=== PATIENT | male | born 1990 ===

== ENCOUNTER 2024-03-11 13:36 | Emergency (ER) | payer BC, OTHER ==
[~2024-03-11] VITALS: Ht 167.6 cm; Wt 74.8 kg
[2024-03-11] MEDS ORDERED: Ondansetron HCl 2 MG / ML 2ML Vial IV PRN (14:00)
[2024-03-11 14:42] LABS: Albumin, Blood 3.8 g/dL (3.4-5.0); Bilirubin, Total 1.3 mg/dL (0.1-1.0); Bun/Creatinine Ratio 8.2 (12.0-20.0); Creatinine, Blood 0.85 mg/dL (0.60-1.20); Potassium, Blood 4.6 mmol/L (3.5-5.5); Total Protein, Blood 7.8 g/dL (6.4-8.2)
[2024-03-11 15:13] LABS: BASOPHILS ABSOLUTE AUTO 0.06 K/mm3 (0.00-0.23); BASOPHILS PERCENT AUTO 0 % (0-2); EOSINOPHILS ABSOLUTE AUTO 0.05 K/mm3 (0.00-0.68); EOSINOPHILS PERCENT AUTO 0 % (0-6); Hematocrit 43.1 % (37.0-53.0); Hemoglobin 14.9 g/dL (13.5-17.5); IMMATURE GRAN ABSOLUTE AUTO 0.08 K/mm3 (0.00-0.10); IMMATURE GRAN PERCENT AUTO 0 % (0-1); LYMPHOCYTES ABSOLUTE AUTO 1.82 K/mm3 (0.84-5.20); LYMPHOCYTES PERCENT AUTO 9 % (21-46); MONOCYTES ABSOLUTE AUTO 1.65 K/mm3 (0.16-1.47); MONOCYTES PERCENT AUTO 8 % (4-13); Mean Corpuscular HGB 28.4 pg (26.0-34.0); Mean Corpuscular HGB Conc 34.6 g/dL (31.5-36.5); Mean Corpuscular Volume 82 fL (80-100); Mean Platelet Volume 10.2 fL (9.1-12.4); NEUTROPHILS ABSOLUTE AUTO 17.68 K/mm3 (1.96-9.15); NEUTROPHILS PERCENT AUTO 83 % (41-73); Platelet Count 423 K/mm3 (150-400); RDW Coefficient Variation 12.1 % (11.7-14.2); RDW Standard Deviation 36.3 fL (35.1-46.3); Red Blood Cell Count 5.25 M/mm3 (4.30-5.90); White Blood Cell Count 21.34 K/mm3 (4.00-11.30)
[2024-03-11] MEDS ORDERED: Prednisone20 MG PO (16:18)
[2024-03-11] MEDS ORDERED: ONDA4ODT MM (16:18)
== END 2024-03-11 16:28 | disposition home or self-care (01) ==
LOC: ER 13:36
PROVIDERS: Emergency Medicine
DX: K50.00 Crohn's disease of small intestine without complications (principal)
CPT/HCPCS: 74177; 80053; 83690; 85025; 96374-59; 99284-25; J2405; Q9967

== ENCOUNTER 2024-10-17 11:46 | Emergency (ER) | payer BC, OTHER ==
[~2024-10-17] VITALS: Ht 162.6 cm; Wt 63.5 kg
[~2024-10-17 11:46] MED LIST: ONDA4ODT MM; Prednisone20 MG PO
[2024-10-17 13:01] LABS: BASOPHILS ABSOLUTE AUTO 0.05 K/mm3 (0.00-0.23); BASOPHILS PERCENT AUTO 0 % (0-2); EOSINOPHILS ABSOLUTE AUTO 0.02 K/mm3 (0.00-0.68); EOSINOPHILS PERCENT AUTO 0 % (0-6); Hematocrit 42.5 % (37.0-53.0); Hemoglobin 14.5 g/dL (13.5-17.5); IMMATURE GRAN ABSOLUTE AUTO 0.07 K/mm3 (0.00-0.10); IMMATURE GRAN PERCENT AUTO 0 % (0-1); LYMPHOCYTES PERCENT AUTO 9 % (21-46); MONOCYTES ABSOLUTE AUTO 1.77 K/mm3 (0.16-1.47); MONOCYTES PERCENT AUTO 10 % (4-13); Mean Corpuscular HGB 28.5 pg (26.0-34.0); Mean Corpuscular HGB Conc 34.1 g/dL (31.5-36.5); Mean Corpuscular Volume 84 fL (80-100); Mean Platelet Volume 9.9 fL (9.1-12.4); NEUTROPHILS ABSOLUTE AUTO 14.64 K/mm3 (1.96-9.15); NEUTROPHILS PERCENT AUTO 81 % (41-73); Platelet Count 462 K/mm3 (150-400); RDW Coefficient Variation 11.9 % (11.7-14.2); RDW Standard Deviation 36.1 fL (35.1-46.3); Red Blood Cell Count 5.08 M/mm3 (4.30-5.90); White Blood Cell Count 18.15 K/mm3 (4.00-11.30)
[2024-10-17 13:24] LABS: Albumin, Blood 3.4 g/dL (3.4-5.0); Albumin/Globulin Ratio 0.8 (0.8-1.8); Bilirubin, Total 1.1 mg/dL (0.1-1.0); Bun/Creatinine Ratio 11.9 (12.0-20.0); Calcium, Blood 9.3 mg/dL (8.5-10.1); Creatinine, Blood 0.93 mg/dL (0.60-1.20); Globulin, Blood 4.3 g/dL (2.2-4.0); Magnesium, Blood 2.3 mg/dL (1.6-2.4); Phosphorus, Blood 3.2 mg/dL (2.5-4.9); Potassium, Blood 3.7 mmol/L (3.5-5.5); Total Protein, Blood 7.7 g/dL (6.4-8.2)
[2024-10-17] MEDS ORDERED: PredniSONE 20 MG Tab PO ONE (15:25)
[2024-10-17] MEDS ORDERED: ONDA4ODT MM (15:29)
[2024-10-17] MEDS ORDERED: Prednisone20 MG PO (15:29)
== END 2024-10-17 15:55 | disposition home or self-care (01) ==
LOC: ER 11:46
PROVIDERS: Student in an Organized Health Care Education/Training Program
DX: K50.10 Crohn's disease of large intestine without complications (principal); R07.9 Chest pain, unspecified; Z79.52 Long term (current) use of systemic steroids
CPT/HCPCS: 74177; 80053; 83690; 83735; 84100; 85025; 99284-25; J7512; Q9967

== ENCOUNTER 2024-12-30 09:14 | Inpatient (IN) | payer BC, OTHER ==
[~2024-12-30] VITALS: Ht 167.6 cm; Wt 77.0 kg
[2024-12-30] MEDS ORDERED: Ondansetron HCl 2 MG / ML 2ML Vial IV ONE (10:00)
[2024-12-30] MEDS ORDERED: NS 1,000 ML IV SCH (10:00)
[2024-12-30] MEDS ORDERED: HYDROmorphone HCl/Pf 1MG SYR IV ONE (10:00)
[2024-12-30 10:21] LABS: BASOPHILS ABSOLUTE AUTO 0.08 K/mm3 (0.00-0.23); BASOPHILS PERCENT AUTO 0 % (0-2); EOSINOPHILS ABSOLUTE AUTO 0.01 K/mm3 (0.00-0.68); EOSINOPHILS PERCENT AUTO 0 % (0-6); Hematocrit 42.6 % (37.0-53.0); Hemoglobin 14.1 g/dL (13.5-17.5); IMMATURE GRAN ABSOLUTE AUTO 0.07 K/mm3 (0.00-0.10); IMMATURE GRAN PERCENT AUTO 0 % (0-1); LYMPHOCYTES ABSOLUTE AUTO 1.54 K/mm3 (0.84-5.20); LYMPHOCYTES PERCENT AUTO 8 % (21-46); MONOCYTES ABSOLUTE AUTO 1.46 K/mm3 (0.16-1.47); MONOCYTES PERCENT AUTO 8 % (4-13); Mean Corpuscular HGB Conc 33.1 g/dL (31.5-36.5); Mean Corpuscular Volume 79 fL (80-100); Mean Platelet Volume 9.8 fL (9.1-12.4); NEUTROPHILS ABSOLUTE AUTO 15.96 K/mm3 (1.96-9.15); NEUTROPHILS PERCENT AUTO 83 % (41-73); Platelet Count 542 K/mm3 (150-400); RDW Coefficient Variation 15.8 % (11.7-14.2); RDW Standard Deviation 44.7 fL (35.1-46.3); Red Blood Cell Count 5.42 M/mm3 (4.30-5.90); White Blood Cell Count 19.12 K/mm3 (4.00-11.30)
[2024-12-30 10:53] LABS: Albumin, Blood 3.6 g/dL (3.4-5.0); Albumin/Globulin Ratio 0.7 (0.8-1.8); Bilirubin, Total 0.7 mg/dL (0.1-1.0); Bun/Creatinine Ratio 7.7 (12.0-20.0); Creatinine, Blood 0.91 mg/dL (0.60-1.20); Globulin, Blood 4.9 g/dL (2.2-4.0); Potassium, Blood 3.8 mmol/L (3.5-5.5); Total Protein, Blood 8.5 g/dL (6.4-8.2)
[2024-12-30] MEDS ORDERED: Piperacillin/Tazobactam Sod 3.375 GM in NS 100 ML IV ONE (11:15)
[2024-12-30] MEDS ORDERED: Ondansetron HCl 2 MG / ML 2ML Vial IV PRN ×2 (13:30→16:10)
[2024-12-30] MEDS ORDERED: D5W-1/2NS KCl 20mEq 1,000 ML IV SCH (13:30)
[2024-12-30] MEDS ORDERED: HYDROmorphone HCl/Pf 1MG SYR IV PRN ×2 (13:30→16:10)
[2024-12-30] MEDS ORDERED: Lactated Ringer's 1,000 ML IV SCH (16:02)
[2024-12-30] MEDS ORDERED: Acetaminophen 325 MG TABLET PO PRN (16:10)
[2024-12-30] MEDS ORDERED: Piperacillin/Tazobactam Sod 3.375 GM in NS 100 ML IV SCH (18:00)
--- NOTE | 2024-12-30 18:23 | NUR ---
PT ARRIVED TO ROOM AT 1721 AOX4 AND COOPERATIVE OF CARE. PT IS INDEPENDENT AND HAS CALL LIGHT WITHIN REACH. PT DENIED NAUSEA AND WAS TREATED FOR ABD PAIN PER EMAR. NO DISTRESS NOTED PT ORIENTED TO ROOM. WILL CONTINUE TO MONITOR.
[2024-12-30] MEDS ORDERED: NS 250 ML IV PRN (19:25)
[2024-12-30 20:02] VITALS: BP 160/113
[2024-12-30 20:06] VITALS: BP 163/112
[2024-12-30] MEDS ORDERED: Lactobacil 2-S.Thermo-Bifido 1 1 Cap PO SCH (21:00)
--- NOTE | 2024-12-31 03:52 | NUR ---
SHIFT SUMMARY ADMITTED FOR PARTIAL BOWEL OBSTRUCTION. FULL CODE. ANTIB RX ARE SCHEDULED. IV FLUIDS INFUSING ORDERED. SMALL ABSCESS FOUND IN MESSENTERY. PAIN MEDICATION GIVEN THIS SHIFT. CLEAR LIQUID DIET. ON RA, A&O X4. INDEPENDENT IN ROOM. HE DENIES DIARRHEA. SURGICAL CONSULT IS DR. MIDDLETON.
[2024-12-31 04:01] VITALS: BP 158/108
[2024-12-31 04:50] LABS: BASOPHILS ABSOLUTE AUTO 0.05 K/mm3 (0.00-0.23); BASOPHILS PERCENT AUTO 0 % (0-2); EOSINOPHILS ABSOLUTE AUTO 0.06 K/mm3 (0.00-0.68); EOSINOPHILS PERCENT AUTO 1 % (0-6); Hemoglobin 11.5 g/dL (13.5-17.5); IMMATURE GRAN ABSOLUTE AUTO 0.04 K/mm3 (0.00-0.10); IMMATURE GRAN PERCENT AUTO 0 % (0-1); LYMPHOCYTES ABSOLUTE AUTO 1.73 K/mm3 (0.84-5.20); LYMPHOCYTES PERCENT AUTO 14 % (21-46); MONOCYTES ABSOLUTE AUTO 1.23 K/mm3 (0.16-1.47); MONOCYTES PERCENT AUTO 10 % (4-13); Mean Corpuscular HGB 25.1 pg (26.0-34.0); Mean Corpuscular HGB Conc 31.9 g/dL (31.5-36.5); Mean Corpuscular Volume 78 fL (80-100); Mean Platelet Volume 9.4 fL (9.1-12.4); NEUTROPHILS ABSOLUTE AUTO 9.05 K/mm3 (1.96-9.15); NEUTROPHILS PERCENT AUTO 75 % (41-73); Platelet Count 387 K/mm3 (150-400); RDW Coefficient Variation 15.9 % (11.7-14.2); RDW Standard Deviation 44.9 fL (35.1-46.3); Red Blood Cell Count 4.59 M/mm3 (4.30-5.90); White Blood Cell Count 12.16 K/mm3 (4.00-11.30)
[2024-12-31 05:19] LABS: Albumin, Blood 2.8 g/dL (3.4-5.0); Albumin/Globulin Ratio 0.7 (0.8-1.8); Bilirubin, Total 0.7 mg/dL (0.1-1.0); Bun/Creatinine Ratio 6.8 (12.0-20.0); Calcium, Blood 8.5 mg/dL (8.5-10.1); Creatinine, Blood 0.74 mg/dL (0.60-1.20); Magnesium, Blood 1.9 mg/dL (1.6-2.4); Phosphorus, Blood 3.1 mg/dL (2.5-4.9); Potassium, Blood 3.6 mmol/L (3.5-5.5); Total Protein, Blood 6.8 g/dL (6.4-8.2)
[2024-12-31 07:36] VITALS: BP 158/98
[2024-12-31] MEDS ORDERED: Enoxaparin 40 MG/0.4 ML SYR SC SCH (09:00)
[2024-12-31] MEDS ORDERED: OxyCODONE HCL 5 MG TAB PO ONE (09:00)
[2024-12-31] MEDS ORDERED: OxyCODONE HCL 5 MG TAB PO PRN (09:00)
[2024-12-31] MEDS ORDERED: Potassium Chloride 10 Meq Tablet SA PO SCH (09:32)
[2024-12-31 15:33] VITALS: BP 157/106
[2024-12-31 16:07] VITALS: BP 157/106
--- NOTE | 2024-12-31 16:33 | NUR ---
SHIFT SUMMARY MR JACOBS IS ORIENTATED X4, UP INDEPENDENTLY TO THE BATHROOPM. NO STOOL THIS SHIFT. ONE EPISODE OF FEELING LIGHTHEADED AND NAUSEAUS EARLIER THIS SHIFT WHICH HAS RESOLVED. RUQ ABDOMINAL PAIN FROM 02/17 TO 10/20 USING ROXICODONE. TOLERATING CLEAR LIQUID DIET. ACCEPTED AT [facility] IN [place]. REPORT CALLED TO VALERIANO, ACCEPTING NURSE. AWAITING DETAILS ON TRANSPORT. MR JACOBS IS INFORMED AND IN AGREEMENT WITH PLAN TO TRANSFER.
--- NOTE | 2024-12-31 18:20 | NUR ---
COBRA TRANSFER AT 1815 VIA MEDICAL TRANSPORT TO [facility]. PIV IN PLACE L AC. PAIN CONTROLLED AT TIME OF TRANSFER HE RECENTLY TOOK ROXYCODONE. NO NEW QUESTIONS OR CONCERNS AT TIME OF TRANSFER. ROOM ASSIGNMENT ON ARRIVAL CHANGED TO ROOM [id number]. REPORT CALLED TO [facility] ACCEPTING NURSE.
== END 2024-12-31 18:19 | disposition short-term general hospital (02) | DRG 872 ==
LOC: ER 09:14 → MEDS 15:21 → ER 17:17 → MEDS 17:22
PROVIDERS: Emergency Medicine; Family Medicine; ADMIT Hospitalist
DX: A41.9 Sepsis, unspecified organism (principal); K50.114 Crohn's disease of large intestine with abscess; K50.112 Crohn's disease of large intestine with intestinal obstruction; Z90.49 Acquired absence of other specified parts of digestive tract
CPT/HCPCS: 36415; 74177; 80053; 83605; 83690; 83735; 84100; 85025; 96361; 96365-59; 96375; 96376; 99285-25; A9270; J1171; J1650; J2405; J2543; J7030; J7050; J7120; Q9967

== ENCOUNTER 2025-01-19 08:32 | Day surgery (SDC) | payer BC, OTHER ==
[~2025-01-19] VITALS: Ht 167.6 cm; Wt 73.1 kg
[~2025-01-19 08:32] MED LIST changes: +Lactated Ringer's 1,000 ML IV ONE; +propofoL 50 ML IV ONE
[2025-01-19] MEDS ORDERED: PRED20 (09:16)
[2025-01-19] MEDS ORDERED: AMLO5 (09:16)
[2025-01-19] MEDS ORDERED: ERGO400 (09:17)
[2025-01-19] MEDS ORDERED: Lactated Ringer's 1,000 ML IV ONE (09:46)
--- NOTE | 2025-01-19 10:19 | NUR ---
01/19/25 1019 Levi Guadarrama REACHED AT 1009.
== END 2025-01-19 10:58 | disposition home or self-care (01) ==
LOC: ORSCSDS 08:32
PROVIDERS: Specialist
PROC: 0DBB8ZX Excision of Ileum, Via Natural or Artificial Opening Endoscopic, Diagnostic (ICD-10-PCS; principal; 2025-01-19 10:00)
PROC: 0DBP8ZX Excision of Rectum, Via Natural or Artificial Opening Endoscopic, Diagnostic (ICD-10-PCS; principal; 2025-01-19 10:00)
DX: K50.90 Crohn's disease, unspecified, without complications (principal); K62.1 Rectal polyp; R93.3 Abnormal findings on diagnostic imaging of other parts of digestive tract; K64.8 Other hemorrhoids; Z79.899 Other long term (current) drug therapy
CPT/HCPCS: 88305; J2704; J7120

== ENCOUNTER 2025-02-12 01:55 | Day surgery (SDC) | payer BC, OTHER ==
[~2025-02-12] VITALS: Wt 76.5 kg
[~2025-02-12 01:55] MED LIST changes: +AMLO5 PO; +ERGO400 PO; +FAMO10 PO; -Lactated Ringer's 1,000 ML IV ONE; +PRED20; -propofoL 50 ML IV ONE
[2025-02-12] MEDS ORDERED: Infliximab-DYYB 400 MG in NS 250 ML IV SCH (06:00)
[2025-02-12] MEDS ORDERED: DiphenhydrAMINE HCL 25 MG Cap PO SCH (07:15)
[2025-02-12] MEDS ORDERED: Acetaminophen 325 MG TABLET PO SCH (07:15)
[2025-02-12] MEDS ORDERED: Hydrocortisone Sod Succinate 100 MG Vial IV SCH (07:15)
[2025-02-12 13:10] VITALS: BP 151/110
[2025-02-12] MEDS ORDERED: INFLECTRA100 MG IV (13:26)
[2025-02-12 14:15] VITALS: BP 145/104
== END 2025-02-12 16:10 | disposition home or self-care (01) ==
LOC: ATC 01:55
DX: K50.012 Crohn's disease of small intestine with intestinal obstruction (principal); Z79.899 Other long term (current) drug therapy
CPT/HCPCS: 96413; 96415; J7050; Q5103

== ENCOUNTER 2025-03-12 03:44 | Day surgery (SDC) | payer BC, OTHER ==
[~2025-03-12 03:44] MED LIST changes: +INFLECTRA100 MG IV
[2025-03-12 11:16] VITALS: BP 156/112
[2025-03-12 11:49] VITALS: BP 151/101
== END 2025-03-12 13:49 | disposition home or self-care (01) ==
LOC: ATC 03:44
DX: K50.012 Crohn's disease of small intestine with intestinal obstruction (principal); Z79.899 Other long term (current) drug therapy
CPT/HCPCS: 96413; 96415; J7050; Q5103

== ENCOUNTER 2025-05-07 03:27 | Day surgery (SDC) | payer BC, OTHER ==
[2025-05-07 09:16] VITALS: BP 150/109
[2025-05-07] MEDS ORDERED: AZAT50 PO (09:16)
== END 2025-05-07 11:49 | disposition home or self-care (01) ==
LOC: ATC 03:27
DX: K50.012 Crohn's disease of small intestine with intestinal obstruction (principal); Z79.899 Other long term (current) drug therapy
CPT/HCPCS: 96413; 96415; J7050; Q5103

== ENCOUNTER 2025-07-02 00:07 | Day surgery (SDC) | payer BC, OTHER ==
[~2025-07-02 00:07] MED LIST changes: +AZAT50 PO
[2025-07-02 14:15] VITALS: BP 157/100
== END 2025-07-02 16:26 | disposition home or self-care (01) ==
LOC: ATC 00:07
DX: K50.012 Crohn's disease of small intestine with intestinal obstruction (principal)
CPT/HCPCS: 96413; 96415; J7050; Q5103